=== PATIENT | male | born 1930 | race Caucasian/White ===

== ENCOUNTER 2017-01-15 22:53 | Emergency (ER) | payer OTHER ==
[~2017-01-15] VITALS: Ht 180.3 cm; Wt 103.0 kg
[2017-01-16] MEDS ORDERED: 8 HOUR C500 MG PO (00:43)
[2017-01-16] MEDS ORDERED: ASPIR 8181 MG PO (00:43)
[2017-01-16] MEDS ORDERED: NORVASC2.5 MG PO (00:43)
[2017-01-16] MEDS ORDERED: PACERONE 200 M200 MG PO (00:43)
[2017-01-16] MEDS ORDERED: PLAVIX 75 MG TA75 M1 PO (00:44)
[2017-01-16] MEDS ORDERED: CALCIUM-MAGNES1 EAC5 PO (00:44)
[2017-01-16] MEDS ORDERED: VITAMIN D1000 UNI1 PO (00:44)
[2017-01-16] MEDS ORDERED: BISOPROLOL FUMAR5 MG PO (00:44)
[2017-01-16] MEDS ORDERED: COQ-10100 MG PO (00:45)
[2017-01-16] MEDS ORDERED: VITAMIN B-12500 MCG PO (00:48)
[2017-01-16] MEDS ORDERED: ENTRESTO 24 MG1 EACH PO (00:48)
[2017-01-16] MEDS ORDERED: FINASTERIDE5 MG PO (00:48)
[2017-01-16] MEDS ORDERED: FOLIC ACID1 MG PO (00:49)
[2017-01-16] MEDS ORDERED: LASIX 20 MG TAB20 MG PO (00:49)
[2017-01-16] MEDS ORDERED: THERAGRAN-M PR1 EAC1 PO (00:50)
[2017-01-16] MEDS ORDERED: GLUCOSAMINE-CH1 EA33 PO (00:50)
[2017-01-16] MEDS ORDERED: NITROGLYCERIN0.4 MG SUBLING (00:50)
[2017-01-16] MEDS ORDERED: PRAVACHOL20 MG PO (00:51)
[2017-01-16] MEDS ORDERED: PROTONIX40 M1 PO (00:51)
[2017-01-16] MEDS ORDERED: POTASSIUM20 PO (00:51)
[2017-01-16] MEDS ORDERED: OMEGA 3 1,0001 EACH PO (00:51)
[2017-01-16] MEDS ORDERED: VITAMIN E400 UNI2 PO (00:52)
[2017-01-16 01:16] VITALS: BP 143/68
== END 2017-01-16 01:19 | disposition home or self-care (01) ==
LOC: ER 22:53
DX: I70.292 Other atherosclerosis of native arteries of extremities, left leg (principal); I50.9 Heart failure, unspecified; Z95.1 Presence of aortocoronary bypass graft; Z96.89 Presence of other specified functional implants

== ENCOUNTER 2018-10-04 20:43 | Inpatient (IN) | payer OTHER ==
[~2018-10-04] VITALS: Ht 180.3 cm; Wt 106.1 kg
[~2018-10-04 20:43] MED LIST: 8 HOUR C500 MG PO; ASPIR 8181 MG PO; BISOPROLOL FUMAR5 MG PO; CALCIUM-MAGNES1 EAC5 PO; COQ-10100 MG PO; ENTRESTO 24 MG1 EACH PO; ENTRESTO 97 MG1 EACH PO; FINASTERIDE5 MG PO; FOLIC ACID1 MG PO; GLUCOSAMINE-CH1 EA33 PO; K-DUR 20 MEQ T20 MEQ PO; LASIX 20 MG TAB20 MG PO; NITROGLYCERIN0.4 MG SUBLING; NORVASC2.5 MG PO; OMEGA 3 1,0001 EACH PO; PACERONE 200 M200 MG PO; PLAVIX 75 MG TA75 M1 PO; POTASSIUM20 PO; PRAVACHOL20 MG PO; PROTONIX40 M1 PO; THERAGRAN-M PR1 EAC1 PO; VITAMIN B-12500 MCG PO; VITAMIN D1000 UNI1 PO; VITAMIN E400 UNI2 PO
[2018-10-04 20:45] VITALS: BP 152/68
[2018-10-04 20:52] LABS: ABSOLUTE NEUTROPHILS 9.9 thou/uL (1.4-8.2); BASOPHILS 0.2 % (0.0-2.0); HEMATOCRIT 36.3 % (42.0-52.0); LYMPHOCYTES 12.5 % (24.0-44.0); MCH 30.3 pg (26.0-34.0); MCHC 33.1 g/dL (28.0-37.0); MCV 91.7 fL (80.0-100.0); PLATELET COUNT 431 thou/uL (150-400); POLYS 83.3 % (36.0-66.0); RBC 3.96 mil/uL (4.50-6.00); RDW 13.3 % (10.5-14.5); WBC 11.9 thou/uL (4.0-11.0)
[2018-10-04 21:06] LABS: ANION GAP 17 mmol/L (7-16); BUN 41 mg/dL (7-18); CALCIUM 9.5 mg/dL (8.5-10.1); CHLORIDE 100 mmol/L (98-107); CO2 21 mmol/L (21-32); CREATININE 2.2 mg/dL (0.7-1.3); GLUCOSE 290 mg/dL (74-106); POTASSIUM 4.6 mmol/L (3.5-5.1); SODIUM 138 mmol/L (136-145)
[2018-10-04 21:10] LABS: APTT 24.9 Seconds (24.5-32.8); INR 1.1; PROTIME 11.4 Seconds (9.3-11.4)
[2018-10-04 21:13] LABS: ALBUMIN 3.5 g/dL (3.4-5.0); DIGOXIN < 0.2 ng/mL (0.9-2.0); SGOT 62 U/L (15-37); SGPT 59 U/L (30-65); TOTAL BILIRUBIN 0.4 mg/dL (<0.1-1.0)
[2018-10-04] MEDS ORDERED: AMIODARONE HCL100 MG PO (22:34)
[2018-10-04] MEDS ORDERED: PLAVIX 75 MG TA75 M1 PO (22:35)
[2018-10-04] MEDS ORDERED: PROSCAR 5MG TABL5 M1 PO (22:35)
[2018-10-04] MEDS ORDERED: PROTONIX40 M1 PO (22:35)
[2018-10-04] MEDS ORDERED: PRAVACHOL20 MG PO (22:36)
[2018-10-04] MEDS ORDERED: BISOPROLOL FUMAR5 MG PO (22:36)
[2018-10-04] MEDS ORDERED: SPIRONOLACTONE25 M1 PO (22:36)
[2018-10-04] MEDS ORDERED: PREDNISONE 10 M10 MG PO (22:37)
[2018-10-04 23:45] VITALS: BP 148/70
[2018-10-05] VITALS (43 sets, daily range): BP systolic 96–173; BP diastolic 45–85
[2018-10-05 00:09] LABS: CHOLESTEROL 127 mg/dL (<200); HDL CHOLESTEROL 38 mg/dL (>40); LDL CHOLESTEROL 64 mg/dL (<100); TC:HDL 3.3 Ratio (Not establshd); TRIGLYCERIDE 127 mg/dL (<150); VLDL 25 mg/dL (<40)
[2018-10-05 00:20] LABS: SERUM ASSESSMENT Clear
[2018-10-05 01:08] LABS: FOLIC ACID 25.5 ng/mL (8.6-58.9); TSH 1.515 uIU/mL (0.358-3.740)
[2018-10-05 04:55] LABS: CALCIUM 9.8 mg/dL (8.5-10.1); CREATININE 1.9 mg/dL (0.7-1.3); POTASSIUM 5.1 mmol/L (3.5-5.1)
[2018-10-05 05:03] LABS: HEMATOCRIT 33.5 % (42.0-52.0); HEMOGLOBIN 11.1 gm/dL (14.0-18.0); MCV 90.9 fL (80.0-100.0); RBC 3.69 mil/uL (4.50-6.00); RDW 13.4 % (10.5-14.5); WBC 13.5 thou/uL (4.0-11.0)
--- NOTE | 2018-10-05 07:36 | NUR ---
PT HAD NO EPISODES OF V.TACH, SINCE ARRIVING ON THE UNIT FROM ER. PT MAINTAINED V. PACED RHYTHM WITH RATE IN THE 60'S, DENIES CHEST DISCOMFORT/ PRESSURE, DENIES NAUSEA. VITAL WNL,PT IS NPO. AMIODARONE NOW AT 0.5MG/HR , RATE CHANGED AT 0330. PT DENIES FURTHER NEEDS, VERBALISES THAT HE WANT DNR, PT'S SON AT BEDSIDE UPDATED OF POC.
--- NOTE | 2018-10-05 08:45 | 2DMMODE ---
[facility] [place] [address] 2 D/M-MODE ECHOCARDIOGRAM Name: SADE MARTINEZ Room #: 240-P [facility] IN ..#: [id number] Admission: 10/04/18 Attend Phys: Cornelia Matthew Discharge: Date of : [birth year] Date of Service: 10/05/18 0845 Report #: [id number] THIS REPORT FOR: //name// APPROVED REPORT Study performed: 10/04/2018 22:57:35 EXAM: Comprehensive 2D, Doppler, and color-flow Echocardiogram Patient Location: ER Room #: 6 Status: on-call BSA: 2.23 HR: 82 bpm BP: 133/79 mmHg Rhythm: Pacemaker, v-tach Other Information Study Quality: Fair Technically limited study due to body habitus, nausea, AICD discharging. Indications Congestive Heart Failure CAD AICD 2D Dimensions IVSd: 9.65 (7-11mm) LVOT Diam: 20.00 (18-24mm) LVDd: 60.69 mm PWd: 10.75 (7-11mm) Ascending Ao: 31.81 (22-36mm) LVDs: 55.67 (25-40mm) Aortic Root: 31.56 mm LV Single Plane 4CH: 18.09 % Aortic Valve AoV Peak Seb.: 2.23 m/s AO Peak Gr.: 19.88 mmHg LVOT Max P.51 mmHg AO Mean Gr.: 11.99 mmHg LVOT Mean P.76 mmHg AO V2 Mean: 1.62 m/s LVOT Max V: 0.61 m/s AO V2 VTI: 50.17 cm LVOT Mean V: 0.40 m/s WHITNEY (VTI): 0.88 cm2 LVOT V1 VTI: 14.54 cm WHITNEY Vmax: 0.84 cm2 AI Vmax: 3.29 m/s SV (LVOT): 44.31 mL AI [place]: 1.96 m/s2 AI PHT: 486.23 ms [facility] [address] [place] [address] 2 D/M-MODE ECHOCARDIOGRAM Name: SADE MARTINEZ Room #: 240-P [facility] IN ..#: [id number] Admission: 10/04/18 Attend Phys: Cornelia Matthew Discharge: Date of : [birth year] Date of Service: 10/05/18 0845 Report #: [id number] Pulmonary Valve PV Peak Seb.: 0.88 m/s PV Peak Gr.: 3.10 mmHg Left Ventricle Left ventricle is dilated. There is normal LV segmental wall motion. There is normal left ventricular wall thickness. Left ventricular systolic function is severely decreased. LVEF is 15-20%. This study is not technically sufficient to allow evaluation of the LV diastolic function. Right Ventricle Right ventricle is grossly normal in size. Right ventricle is hypokinetic. Atria The left atrium size is normal. The right atrium size is normal. Aortic Valve The Aortic valve is sclerotic. Mild aortic regurgitation. Aortic valve peak gradient is 20 mmHg and the mean is 12 mmHg. Aortic valve area is approximately 0.9 cm2. Mitral Valve There is mitral annular calcification. Mild mitral regurgitation. No evidence of mitral valve stenosis. Tricuspid Valve The tricuspid valve is normal in structure. Trace tricuspid regurgitation. Unable to assess PA pressure. Pulmonic Valve Trace to mild pulmonic regurgitation. Great Vessels The aortic root is normal in size. IVC is not seen. Pericardium There is no pericardial effusion. <Conclusion> Left ventricle is dilated. LVEF is 15-20%. The Aortic valve is sclerotic. [address] [address] 2 D/M-MODE ECHOCARDIOGRAM Name: JUANKARYN Room #: 240-P [facility] IN ..#: [id number] Admission: 10/04/18 Attend Phys: Cornelia Matthew Discharge: Date of : [birth year] Date of Service: 10/05/18 0845 Report #: [id number] Mild aortic regurgitation. Aortic valve peak gradient is 20 mmHg and the mean is 12 mmHg. Aortic valve area is approximately 0.9 cm2. There is mitral annular calcification. Mild mitral regurgitation. The tricuspid valve is normal in structure. Trace tricuspid regurgitation. Unable to assess PA pressure. Trace to mild pulmonic regurgitation. There is no pericardial effusion. <ELECTRONICALLY SIGNED> By: Brad Rodriguez MD 10/05/1845 4 4 Brad Rodriguez MD /INF
--- NOTE | 2018-10-05 08:51 | EKG ---
[address] [place] [address] ELECTROCARDIOGRAM REPORT Name: SADE MARTINEZ Room #: 240-P ADM IN M.R.#: [id number] Admission: 10/04/18 Attend Phys: Cornelia Romero Discharge: Date of : [birth year] Report #: [id number] THIS REPORT FOR: //name// [facility] ED Test Date: 2018-10-04 Test Time: 20:44:58 Pat Name: SADE MARTINEZ Department: Room: 240 Gender: M Rfid Manager: CEASAR : 1930 Requested By: Marline Rose Order Number: [id number] MD: Jesus Alejandre Measurements Intervals [place] Rate: 68 P: UT: QRS: 154 QRSD: 186 T: 139 QT: 514 QTc: 547 Interpretive Statements Afib/flutter and ventricular-paced rhythm No further analysis attempted due to paced rhythm No previous ECG available for comparison Electronically Signed On 10-05-2018 8:51:29 [employer] by Jesus Alejandre [email or web address] <ELECTRONICALLY SIGNED> By: Jesus Alejandre MD, [facility] 10/05/18 0851 D: [id number] Jesus Alejandre MD, FACC /EPI
[2018-10-05 09:33] LABS: URINE BILIRUBIN NEGATIVE (Negative); URINE BLOOD NEGATIVE (Negative); URINE CLARITY CLEAR; URINE COLOR YELLOW; URINE GLUCOSE-RANDOM* NEGATIVE (Negative); URINE KETONES NEGATIVE (Negative); URINE LEUKOCYTES-REFLEX 1+ (Negative); URINE NITRITE-REFLEX NEGATIVE (Negative); URINE PROTEIN (DIPSTICK) NEGATIVE (Negative); URINE SPECIFIC GRAVITY 1.025 (1.005-1.035); URINE UROBILINOGEN 0.2 E.U./dl (0.2-1.0)
[2018-10-05 09:44] LABS: BACTERIA-REFLEX 1-9 Few /HPF (None Seen); CRYSTALS None Seen /LPF (None Seen); HYALINE CASTS 4-10 Moderate /LPF (None Seen); SQUAMOUS 0-3 Few /LPF (0-3); URINE RBC 0-2 Rare /HPF (0-2); URINE WBC-REFLEX 6-15 Few /HPF (0-5)
--- NOTE | 2018-10-05 19:35 | NUR ---
ASSUMED CARE OF PT AT 0700. PT HAS NOT HAD ANY ADDITIONAL SHOCKS FROM HIS AICD SINCE ARRIVAL TO UNIT, ON AMIODARONE GTT AT 1MG/HR X 24 HRS PER CARDIOLOGY. HR IS V-PACED. SUPERVISOR NUCLEAR MEDICINE TALKED WITH PT AND FAMILY IN DETAIL ABOUT CHF, DIETARY RESTRICTIONS, AND POSSIBILITY OF MOVING TO ASSISTED LIVING SITUATION OPPOSED TO LIVING ALONE BEFORE ADMISSION. FAMILY IN FAVOR. PT HESITANT. CONTINUE TO MONITOR AND MOVE OUT TO CCU [place].
--- NOTE | 2018-10-05 22:30 | NUR ---
ASSUMED CARE OF PT AT 1900. ON AMIO GTT; PT'S RHYTHM IS V-PACED AND THE RATE WAS CONSISTENTLY IN THE 60s WHILE IN THE ICU THIS EVENING. PT ON 2L O2 NC, WHICH KEEPS HIS O2 SAT 95% AND ABOVE WHILE AWAKE. PT TX'D TO CCU AT 2205, BEDSIDE REPORT GIVEN TO
--- NOTE | 2018-10-06 01:55 | NUR ---
PT LAYING IN BED IN NAD. DENIES NEEDS AND STATES NO COMPLAINTS.
[2018-10-06 04:52] VITALS: BP 116/57
[2018-10-06 05:39] LABS: HEMATOCRIT 33.2 % (42.0-52.0); MCH 30.1 pg (26.0-34.0); MCHC 33.2 g/dL (28.0-37.0); MCV 90.5 fL (80.0-100.0); RBC 3.67 mil/uL (4.50-6.00); RDW 13.6 % (10.5-14.5); WBC 12.6 thou/uL (4.0-11.0)
[2018-10-06 05:58] LABS: ALBUMIN 3.1 g/dL (3.4-5.0); CALCIUM 9.2 mg/dL (8.5-10.1); CREATININE 1.6 mg/dL (0.7-1.3); MAGNESIUM 2.1 mg/dL (1.8-2.4); POTASSIUM 4.4 mmol/L (3.5-5.1); TOTAL BILIRUBIN 0.5 mg/dL (<0.1-1.0)
[2018-10-06 07:45] VITALS: BP 114/69
[2018-10-06 11:45] VITALS: BP 117/64
[2018-10-06 15:30] VITALS: BP 112/74
--- NOTE | 2018-10-06 17:42 | NUR ---
ASSUMED CARE OF PT AT SHIFT CHANGE. ASSESSMENTS CHARTED. MEDS GIVEN PER NOV. PT AOX4, NO C/O PAIN, DENIES CHEST PAIN. PT UP WITH PHYSICAL THERAPY TODAY AND TOLERATED WELL, PT HAS BEEN UP TO BATHROOM WITH MODERATE ASSIST THROUGHOUT DAY. O2 SATS REMAIN WNL ON 2L O2. PT CALLS APPROPRIATELY WITH NEEDS, FALL PRECAUTIONS IN PLACE, BED ALARM ON. WILL CONTINUE TO MONITOR AND FOLLOW POC.
[2018-10-06 20:00] VITALS: BP 119/57
--- NOTE | 2018-10-07 03:02 | NUR ---
AOX4. DENIES PAIN. AV PACED ON THE MONITOR. 2+/1+ PULSES. NO EDEMA. MODERATE STRETGTH. GAIT BELT ON AND USES WALKER ON GOING TO THE BATHROOM WITH 1 ASSIST. RONCHI ON THE UPPER LOBES AND DIMINISHED ON THE LOWER LOBES, ON 2 L/NC. NON PRODUCTIVE COUGH NOTED. WOUND ON THE ANTERIOR FOOT NOTED, CLEAN AND DRY. IV ON THE RIGHT FA, INTACT AND FLUSHES WELL. PATIENT ABLE TO TURN ON HIS OWN. MAINTAINED ON FALL PRECAUTION. FF UP POC.
[2018-10-07 04:30] VITALS: BP 115/84
[2018-10-07 07:35] VITALS: BP 120/57
[2018-10-07 11:35] VITALS: BP 112/58
--- NOTE | 2018-10-07 12:08 | EKG ---
[place] [address] [facility] [place] [address] ELECTROCARDIOGRAM REPORT Name: SADE MARTINEZ Room #: 205-P ADM IN M.R.#: [id number] Admission: 10/04/18 Attend Phys: Cornelia Romero Discharge: Date of : [birth year] Report #: [id number] THIS REPORT FOR: //name// [facility] Test Date: 2018-10-07 Test Time: 09:52:10 Pat Name: SADE MARTINEZ Department: Room: 205 P Gender: M Fruit Dumper: SUZAN : 1930 Requested By: Jesus Alejandre Order Number: [id number] MD: Jesus Alejandre Measurements Intervals [place] Rate: 60 P: 32 IN: 227 QRS: 236 QRSD: 203 T: 128 QT: 574 QTc: 574 Interpretive Statements Ventricular-paced rhythm No further analysis attempted due to paced rhythm Compared to ECG 10/04/2018 20:44:58 no significant change was found Electronically Signed On 10-07-2018 12:08:39 WINDOW UNIT AIR CONDITIONING MECHANIC by Jesus Alejandre [email or web address] <ELECTRONICALLY SIGNED> By: Jesus Alejandre MD, [facility] 10/07/18 1208 1 Jesus Alejandre MD, [facility] /EPI
[2018-10-07 15:35] VITALS: BP 117/58
--- NOTE | 2018-10-07 19:17 | NUR ---
ASSUMED CARE OF PT AT SHIFT CHANGE. ASSESSMENTS CHARTED. MEDS GIVEN PER NOV. PT AOX, VSS, NO C/O PAIN. DENIES CHEST PAIN. O2 SATS WNL ON 2L O2. NO S/SX OF CARDIAC OR RESP DISTRESS NOTED. PT HAD UPSET STOMACH THIS AFTERNOON, LEMON DOUGLAS SODA GIVEN, RELIEF OBTATINED. PT CONTINUES TO BE AV PACED ON MONITOR. PLAN FOR PT IS TO HAVE DEFIBRILLATOR GENERATOR EXCHANGE TOMORROW, CONSENT SIGNED. WILL CONTINUE TO MONITOR AND FOLLOW POC.
[2018-10-07 20:08] VITALS: BP 128/53
--- NOTE | 2018-10-08 03:20 | NUR ---
ASSESSMENT DOCUMENTED.PT BEEN RESTING IN NO ACUTE DISTRESS.VSS.A/OX4.PT PLANNED TO HAVE ICD GENERATOR EXCHANGE TODAY.NPO AFTER MIDNOC.PT DENIES ANY NEEDS AT THIS TIME.WILL CONT TO MONITOR PER POC.
[2018-10-08 05:57] VITALS: BP 131/61
[2018-10-08 07:45] VITALS: BP 125/63
[2018-10-08 08:55] LABS: HEMATOCRIT 32.9 % (42.0-52.0); HEMOGLOBIN 11.2 gm/dL (14.0-18.0); MCH 30.7 pg (26.0-34.0); MCHC 34.1 g/dL (28.0-37.0); PLATELET COUNT 356 thou/uL (150-400); RBC 3.65 mil/uL (4.50-6.00); RDW 13.3 % (10.5-14.5); WBC 10.4 thou/uL (4.0-11.0)
[2018-10-08 09:19] LABS: CREATININE 1.3 mg/dL (0.7-1.3); TOTAL BILIRUBIN 0.5 mg/dL (<0.1-1.0); TOTAL PROTEIN 7.2 g/dL (6.4-8.2)
[2018-10-08 09:25] LABS: ABSOLUTE NEUTROPHILS 8.1 thou/uL (1.4-8.2); METAMYELOCYTES 1 %; MYELOCYTES 2 %
[2018-10-08 09:26] LABS: ANISOCYTOSIS SLIGHT
[2018-10-08 11:50] VITALS: BP 119/57
--- NOTE | 2018-10-08 12:43 | NUR ---
FAXED REFERRAL TO [facility] SPOKE WITH JONAS IN ADM. AND SHE RECEIVED REFERRAL AND CAN ACCEPT PENDING AUTH. MALENAP TO FOLLOW.
--- NOTE | 2018-10-08 13:35 | NUR ---
met with patient, son at bedside. Patient reports he resides at home alone in independent home. All needs on one level with 3 steps to enter and a railing. Patient has home oxygen via [facility] at 3 liters. He has a walker and cane for community. He does not use assistive device in home. He reports prev driving. Son at bedside reports patient is weak and interested in post acute care at [place]. Patient in agreement with plan. [email or web address] following
--- NOTE | 2018-10-08 15:02 | NUR ---
VSS REMAINS AV/V PACED. LUNGS WITH WHEEZES, O2 SAT 2L HOME DOSE IS 99%. UP IN ROOM WITH ASSIST AND WALKER AND STEADY WITH WALKER. AWAITING PACEMAKER GENERATOR CHANGE TODAY. WILL CONTINUE TO MONITER AND CARE FOR PT PER PLAN OF CARE
[2018-10-08 18:10] VITALS: BP 143/70
--- NOTE | 2018-10-08 19:01 | NUR ---
RECEIVED PT FROM [facility] SOFTWARE COMPUTER SPECIALIST. VSS REMAINS AV PACED, AT 60, BP STABLE L CHEST DRESSIING INTACT. LUNGS WITH WHEEZE O2 SAT 2L IS 95%. WILL CONTINUE TO MONITER AND CARE FOR PT PER PLAN OF CARE
[2018-10-08 19:43] VITALS: BP 135/71
[2018-10-09 02:39] VITALS: BP 170/94
--- NOTE | 2018-10-09 06:09 | NUR ---
ASSUMED PT CARE AT 1900 WITH REPORT TAKEN. PT IS ALERT AND ORIENTED WITH NO SIGN OF DISTRESS NOTED IN PT. PT IS STABLE AFTER PACEMAKER GENERATOR REPLACEMENT. NO SIGN OF DISTRESS NOTED IN PT. PT IS LAYING IN BED WITH FAMILY AT BEDSIDE. SCHEDULED MEDS ADMINISTERED TO PT. ASSESSMENT DONE AND COMPLETED. PT DENIES ANY PAIN, OR NEEDS AT THIS TIME.
[2018-10-09 07:09] LABS: AMIODARONE 1.3 ug/mL (1.0-2.5); DES-AMIODARONE 0.3 ug/mL (1.0-2.5)
[2018-10-09 07:45] VITALS: BP 137/65
[2018-10-09] MEDS ORDERED: PACERONE 200 M200 M1 PO ×2 (08:36→09:59)
[2018-10-09] MEDS ORDERED: MAGNESIUM400 MG PO (08:37)
[2018-10-09] MEDS ORDERED: LASIX 40 MG TAB40 M1 PO (08:37)
--- NOTE | 2018-10-09 10:07 | NUR ---
PATIENT TO DC TO [facility] TODAY. JONAS IN ADMISSIONS AT [place] REPORTS THEY REC AUTH. YANIRA DUKES FOR 1300. CHART COPY ON PROCESS. NOTIFIED PATIENT AND SON MICHAEL OF DC AND TRANFER TIME.
--- NOTE | 2018-10-09 10:54 | NUR ---
PT. DISCHARGING TODAY TO [facility].FAXED DC ORDERS/SUMMARY TO FACILITY AND SPOKE WITH JONAS AND SHE RECEIVED DC ORDERS. TRANSPORTATION ARRANGED FOR 1300 TODAY. FAMILY NOTIFIED PER JAQUI. UNIT NOTIFIED AND CHART COPY PER US. RN TO CALL REPORT TO [phone].
[2018-10-09 11:50] VITALS: BP 159/69
[2018-10-09 13:13] VITALS: BP 159/69
--- NOTE | 2018-10-09 16:05 | CATHLAB ---
[facility] [address] [place] [address] INVASIVE PROCEDURE REPORT Name: SADE MARTINEZ Room #: 205-P [facility] IN [facility]#: [id number] Admission: 10/04/18 Attend Phys: Cornelia Matthew Discharge: 10/09/18 Date of : [birth year] Date of Service: 10/09/18 1605 Report #: [id number] THIS REPORT FOR: //name// APPROVED REPORT Study performed: 10/08/2018 16:04:20 Patient Status: In-Patient Room #: Exam: Generator Change for a Bi-Ventricular Permanent Pacemaker The patient is a 88 year-old male with a history of . Intraoperative Conscious Sedation Sedation start time: 16:25 Case end Time: 17:25 Versed 2 mg Implanted Devices: [employer] Assura BiVICD generator placed. Model #FI0321-55F; SN #[id number] Procedure After explaining the risks, benefits, and alternative options, informed consent was obtained from the patient. The patient was brought to the cardiac catheterization lab and the left chest and shoulder were prepped and draped in the usual fashion. During this case, Fluoroscopy and no contrast were used for imaging. The proposed incision site was then instilled with lidocaine with epi. Using a standard blade the incision was made through the skin. Utilizing both sharp and blunt dissection and cautery to cauterize small bleeders the device envelope was identified. This was then carefully entered with a blade incision and the use of a Metzenbaum scissors. The device was then delivered. Leads were replaced and checked. Tug test was performed. The pocket was then irrigated with back solution as was the skin need device and leads. The pocket was then closed with 3-0 nonabsorbable suture in a running locking stitch. 2 subcutaneous layers were closed in this fashion. The skin was then closed with 30 absorbable running subcuticular stitch. Steri-Strips 4 x 4 OpSite were utilized. Complications The patient tolerated the procedure well and there were no complications associated with the procedure. [address] [address] INVASIVE PROCEDURE REPORT Name: SADE MARTINEZ Room #: 205-P [facility] IN ..#: [id number] Admission: 10/04/18 Attend Phys: Cornelia Matthew Discharge: 10/09/18 Date of : [birth year] Date of Service: 10/09/18 1605 Report #: [id number] Findings Specimens Removed: No Estimated Blood Loss: 10cc Conclusion 1. Successful biventricular ICD generator change Recommendations 1. Routine post-generator change protocol <ELECTRONICALLY SIGNED> By: Brad Rodriguez MD 10/09/18 1605 1605 1605 Brad Rodriguez MD /INF
== END 2018-10-09 13:33 | DRG 245 ==
LOC: ER 20:43 → 2N 22:46 → EROBS 22:46 → ICU 22:46 → 2N 10-05 22:35
PROVIDERS: Internal Medicine; Nurse Practitioner; Nurse Practitioner Family; Student in an Organized Health Care Education/Training Program; ADMIT Hospitalist
DX: I47.2 Ventricular tachycardia (principal); N17.0 Acute kidney failure with tubular necrosis; J98.11 Atelectasis; I50.20 Unspecified systolic (congestive) heart failure; I42.9 Cardiomyopathy, unspecified; Z66 Do not resuscitate; I49.01 Ventricular fibrillation; N40.0 Benign prostatic hyperplasia without lower urinary tract symptoms; I25.10 Atherosclerotic heart disease of native coronary artery without angina pectoris; I50.9 Heart failure, unspecified; E78.5 Hyperlipidemia, unspecified; J44.9 Chronic obstructive pulmonary disease, unspecified; I73.9 Peripheral vascular disease, unspecified; I48.91 Unspecified atrial fibrillation; Z95.1 Presence of aortocoronary bypass graft; Z79.899 Other long term (current) drug therapy; Z95.5 Presence of coronary angioplasty implant and graft; Z99.81 Dependence on supplemental oxygen; Z95.810 Presence of automatic (implantable) cardiac defibrillator
CPT/HCPCS: 10078; 10081

== ENCOUNTER → 2018-11-21 | Outpatient (CLI) | payer OTHER ==
[~2018-11-21] MED LIST changes: +AMIODARONE HCL100 MG PO; +LASIX 40 MG TAB40 M1 PO; +MAGNESIUM400 MG PO; +PACERONE 200 M200 M1 PO; +PREDNISONE 10 M10 MG PO; +PROSCAR 5MG TABL5 M1 PO; +SPIRONOLACTONE25 M1 PO
== END ==
LOC: HYPER 11-13 15:21 → ULTRA 06:34 → HYPER 11:50
DX: L97.522 Non-pressure chronic ulcer of other part of left foot with fat layer exposed (principal); L23.9 Allergic contact dermatitis, unspecified cause; E78.5 Hyperlipidemia, unspecified; I73.9 Peripheral vascular disease, unspecified; I48.91 Unspecified atrial fibrillation; I50.9 Heart failure, unspecified; I25.10 Atherosclerotic heart disease of native coronary artery without angina pectoris; N17.8 Other acute kidney failure; Z79.82 Long term (current) use of aspirin; Z79.01 Long term (current) use of anticoagulants; Z79.52 Long term (current) use of systemic steroids; Z99.81 Dependence on supplemental oxygen

== ENCOUNTER → 2018-12-11 | Outpatient (CLI) | payer OTHER ==
[~2018-12-11] VITALS: Ht 180.3 cm; Wt 106.1 kg
[2018-12-11 08:36] VITALS: BP 133/65
[2018-12-11 08:46] LABS: HEMATOCRIT 40.6 % (42.0-52.0); HEMOGLOBIN 13.6 gm/dL (14.0-18.0); MCH 30.8 pg (26.0-34.0); MCHC 33.6 g/dL (28.0-37.0); MCV 91.7 fL (80.0-100.0); RBC 4.42 mil/uL (4.50-6.00); RDW 15.1 % (10.5-14.5); WBC 7.3 thou/uL (4.0-11.0)
[2018-12-11 09:04] LABS: CALCIUM 9.4 mg/dL (8.5-10.1); CREATININE 1.3 mg/dL (0.7-1.3); POTASSIUM 3.9 mmol/L (3.5-5.1)
[2018-12-11 12:30] VITALS: BP 139/57
== END | disposition home or self-care (01) ==
LOC: SPEC 06:30
PROVIDERS: Nuclear Medicine Nuclear Cardiology
DX: I70.248 Atherosclerosis of native arteries of left leg with ulceration of other part of lower leg (principal); I70.1 Atherosclerosis of renal artery; I77.1 Stricture of artery; I11.0 Hypertensive heart disease with heart failure; I50.9 Heart failure, unspecified; I48.91 Unspecified atrial fibrillation; I42.9 Cardiomyopathy, unspecified; E78.5 Hyperlipidemia, unspecified; Z79.01 Long term (current) use of anticoagulants; Z95.1 Presence of aortocoronary bypass graft; Z95.5 Presence of coronary angioplasty implant and graft; Z95.810 Presence of automatic (implantable) cardiac defibrillator; Z79.899 Other long term (current) drug therapy; Z98.890 Other specified postprocedural states

== ENCOUNTER → 2018-12-20 | Outpatient (CLI) | payer OTHER ==
[~2018-12-20] VITALS: Ht 180.3 cm; Wt 106.6 kg
== END | disposition home or self-care (01) ==
LOC: SPEC 08:13
DX: I70.248 Atherosclerosis of native arteries of left leg with ulceration of other part of lower leg (principal); L97.829 Non-pressure chronic ulcer of other part of left lower leg with unspecified severity; I70.1 Atherosclerosis of renal artery; I11.0 Hypertensive heart disease with heart failure; I50.9 Heart failure, unspecified; I25.10 Atherosclerotic heart disease of native coronary artery without angina pectoris; I48.91 Unspecified atrial fibrillation; I42.9 Cardiomyopathy, unspecified; Z95.5 Presence of coronary angioplasty implant and graft; Z95.1 Presence of aortocoronary bypass graft; Z95.810 Presence of automatic (implantable) cardiac defibrillator; Z79.899 Other long term (current) drug therapy; Z98.890 Other specified postprocedural states; Z79.01 Long term (current) use of anticoagulants